=== PATIENT | female | born 1940 | race Caucasian/White ===

== ENCOUNTER 2019-09-01 17:43 | Inpatient (IN) | payer MEDICARE, OTHER ==
[~2019-09-01] VITALS: Ht 154.9 cm; Wt 69.6 kg
[~2019-09-01 17:43] MED LIST: ACIT10CA2 PO; AMLO10TA13 PO; ASPI-498 PO; CAR125T PO; CEPH500C PO; CHOL20007 PO; FEBU80TA PO; FURO1TAB33 PO; HYDR10TA26 PO; ISO60SRT PO; PERCOT PO; PRAV20TA3 PO; REPA0.5T5 PO; TOBRSUS35 EACHEYE
[2019-09-01 18:50] LABS: Basophils # (auto) 0 uL; Basophils % (auto) 0.7 % (0.0-2.0); Eosinophils # (auto) 0.1 uL; Eosinophils % (auto) 1.1 % (0.0-7.0); Hematocrit 31.5 % (36.0-46.0); Hemoglobin 10.5 g/dL (12.2-16.2); Lymphocytes # (auto) 1.1 uL; Lymphocytes % (auto) 23.6 % (10.0-50.0); Mean Corpuscular Hemoglobin 30.1 pg (28.0-32.0); Mean Corpuscular Hgb Conc. 33.5 g/dL (32.0-36.0); Mean Corpuscular Volume 89.8 fL (80.0-100.0); Monocytes # (auto) 0.6 uL; Monocytes % (auto) 13.3 % (0.0-12.0); Neutrophils # (auto) 2.9 uL; Neutrophils % (auto) 61.3 % (37.0-80.0); Platelet Count (auto) 115 10^3/uL (140-450); Red Cell Distribution Width 15.1 % (11.8-14.3); White Blood Cell 4.7 10^3/uL (4.4-10.8)
[2019-09-01 19:04] LABS: INR 1.04 (0.9-1.15); Partial Thromboplastin Time 27.9 sec (23.64-32.05)
[2019-09-01 19:08] LABS: Albumin 3.5 g/dL (3.4-5.0); Calcium 8.5 mg/dL (8.5-10.1)
[2019-09-01 19:14] LABS: BUN/Creatinine Ratio 6.2; Bilirubin, Total 0.5 mg/dL (0.2-1.0); Total Protein 7.8 g/dL (6.4-8.2)
[2019-09-01] MEDS ORDERED: ACETAMINOPHEN 325 MG TAB PO PRN (20:30)
[2019-09-01] MEDS ORDERED: HYDROcodone-ACET 5/325MG TAB PO PRN (20:30)
[2019-09-01] MEDS ORDERED: OXYCODONE W/ ACETAMINOPHEN 5/325MG TABLET PO PRN (20:30)
[2019-09-01] MEDS ORDERED: MORPHINE SULF INJ 2 MG/ML SYRINGE 1ML IV PRN (20:30)
[2019-09-01] MEDS ORDERED: NITROGLYCERIN 0.4 MG SL TAB SL PRN (20:30)
[2019-09-01] MEDS ORDERED: MORPHINE SULFATE 4 MG/ML SYR/VIAL IV PRN (20:30)
[2019-09-01] MEDS ORDERED: DOCUSATE SOD 100 MG CAP PO PRN (20:30)
[2019-09-01] MEDS ORDERED: DEXTROSE (50%) 50ML SYRG IV PRN (20:30)
[2019-09-01 20:31] LABS: Urine Bacteria NONE SEEN /hpf (None Seen); Urine Blood TRACE /uL (Negative); Urine Specific Gravity 1.012 (1.001-1.035); Urine WBC 19 /hpf (0 - 5)
[2019-09-01] MEDS ORDERED: POTASSIUM CHL 20MEQ/100ML 100 ML IV ONE (21:00)
[2019-09-01] MEDS: hydrALAZINE HCL 10 MG TAB PO SCH (23:03)
[2019-09-01] MEDS: CARVEDILOL 3.125 MG TAB PO SCH (23:04)
[2019-09-01] MEDS: ACCU-CHEK COMFORT CURVE STRIP VI SCH ×2 (23:04→23:26)
[2019-09-01] MEDS: PRAVASTATIN SODIUM 20 MG TAB PO SCH (23:04)
[2019-09-01] MEDS: InsuLIN REG 1unit/0.01ml Soln (100units/ml) SC SCH (23:25)
[2019-09-01 23:43] VITALS: BP 155/67
[2019-09-02] VITALS (8 sets, daily range): BP systolic 128–155; BP diastolic 52–74
[2019-09-02] MEDS: InsuLIN REG 1unit/0.01ml Soln (100units/ml) SC SCH ×5 (04:00→20:00)
[2019-09-02] MEDS: hydrALAZINE HCL 10 MG TAB PO SCH ×2 (05:23→05:25)
[2019-09-02 06:09] LABS: Basophils # (auto) 0 uL; Basophils % (auto) 0.8 % (0.0-2.0); Eosinophils # (auto) 0.1 uL; Eosinophils % (auto) 1.6 % (0.0-7.0); Hemoglobin 10.7 g/dL (12.2-16.2); Lymphocytes # (auto) 1.2 uL; Mean Corpuscular Hemoglobin 30.4 pg (28.0-32.0); Mean Corpuscular Hgb Conc. 34.5 g/dL (32.0-36.0); Mean Corpuscular Volume 88.2 fL (80.0-100.0); Monocytes # (auto) 0.6 uL; Monocytes % (auto) 12.8 % (0.0-12.0); Neutrophils # (auto) 2.7 uL; Neutrophils % (auto) 58.8 % (37.0-80.0); Nucleated Red Blood Cells % 0.1 %; Platelet Count (auto) 114 10^3/uL (140-450); Red Blood Cells 3.51 10^6/uL (4.0-5.20); Red Cell Distribution Width 14.9 % (11.8-14.3); White Blood Cell 4.6 10^3/uL (4.4-10.8)
[2019-09-02 06:20] LABS: Potassium 3.6 mmol/L (3.5-5.1)
[2019-09-02 06:25] LABS: BUN/Creatinine Ratio 6.6; Calcium 8.4 mg/dL (8.5-10.1)
[2019-09-02] MEDS: ACCU-CHEK COMFORT CURVE STRIP VI SCH ×4 (08:00→20:00)
[2019-09-02] MEDS: REPAGLINIDE 0.5 MG TAB PO SCH ×3 (08:54→19:04)
[2019-09-02] MEDS: CARVEDILOL 3.125 MG TAB PO SCH (10:00)
[2019-09-02] MEDS: FUROSEMIDE 20 MG TAB PO SCH (10:55)
[2019-09-02] MEDS: ISOSORBIDE MONONITRATE ER 60 MG TAB PO SCH (10:56)
[2019-09-02] MEDS: CHOLECALCIFEROL (VITD3) 1,000IU=25mCg TAB PO SCH (10:57)
[2019-09-02] MEDS: ASPirin-EC 81 mg tab PO SCH (10:57)
[2019-09-02] MEDS: amLODIPine BESYLATE 5 MG TAB PO SCH (10:58)
[2019-09-02] MEDS ORDERED: cefTRIAXone 1GM/50ML D5W 50 ML IV ONE (13:00)
[2019-09-02] MEDS: hydrALAZINE HCL 25 MG TAB PO SCH ×2 (14:58→22:36)
[2019-09-02] MEDS: PRAVASTATIN SODIUM 20 MG TAB PO SCH (22:42)
[2019-09-03] MEDS: InsuLIN REG 1unit/0.01ml Soln (100units/ml) SC SCH ×4 (04:00→12:00)
[2019-09-03] MEDS: ACCU-CHEK COMFORT CURVE STRIP VI SCH ×4 (05:02→12:00)
[2019-09-03 05:11] VITALS: BP 150/68
[2019-09-03] MEDS: hydrALAZINE HCL 25 MG TAB PO SCH (06:25)
[2019-09-03] MEDS: REPAGLINIDE 0.5 MG TAB PO SCH ×2 (08:38→12:00)
[2019-09-03] MEDS: cefTRIAXone 1GM/50ML D5W 50 ML IV SCH ×2 (09:00→09:20)
[2019-09-03] MEDS: ASPirin-EC 81 mg tab PO SCH (09:23)
[2019-09-03] MEDS: ISOSORBIDE MONONITRATE ER 60 MG TAB PO SCH (09:25)
[2019-09-03] MEDS: CHOLECALCIFEROL (VITD3) 1,000IU=25mCg TAB PO SCH (09:25)
[2019-09-03] MEDS: amLODIPine BESYLATE 5 MG TAB PO SCH (09:26)
[2019-09-03] MEDS: FUROSEMIDE 20 MG TAB PO SCH (09:32)
[2019-09-03 12:42] VITALS: BP 143/53
[2019-09-04] MEDS ORDERED: SODIUM CHL 0.9% 1000 ML BAG XX ONE (07:00)
[2019-09-04] MEDS ORDERED: EPOETIN ALFA 4,000 UNIT/ML VL SC ONE (21:00)
== END 2019-09-03 13:45 | disposition home or self-care (01) | DRG 291 ==
LOC: EDBD 17:43 → ER 17:50 → TELE 17:51 → TELE-EAST 22:29
PROVIDERS: ADMIT Hospitalist; ATTEND Hospitalist
DX: I13.2 Hypertensive heart and chronic kidney disease with heart failure and with stage 5 chronic kidney disease, or end stage renal disease (principal); I50.33 Acute on chronic diastolic (congestive) heart failure; N18.6 End stage renal disease; N17.9 Acute kidney failure, unspecified; N39.0 Urinary tract infection, site not specified; R00.1 Bradycardia, unspecified; E78.5 Hyperlipidemia, unspecified; I44.7 Left bundle-branch block, unspecified; E87.6 Hypokalemia; E78.00 Pure hypercholesterolemia, unspecified; E11.22 Type 2 diabetes mellitus with diabetic chronic kidney disease; D63.1 Anemia in chronic kidney disease; M10.9 Gout, unspecified; Z82.49 Family history of ischemic heart disease and other diseases of the circulatory system; Z99.2 Dependence on renal dialysis; Z83.3 Family history of diabetes mellitus
CPT/HCPCS: 36415; 71045; 76775; 80048; 80053; 80061; 81001; 82962; 83036; 83880; 84484; 85025; 85610; 85730; 93306; G0378; J0696; J3480

== ENCOUNTER 2020-07-08 12:03 | Inpatient (IN) | payer MEDICARE, OTHER ==
[~2020-07-08] VITALS: Ht 165.1 cm; Wt 70.3 kg
[2020-07-08] MEDS ORDERED: methylPREDNISolone SOD SUCC 125 MG/2 ML VL IV ONE (12:15)
[2020-07-08 13:11] LABS: Hematocrit 36.8 % (36.0-46.0); Hemoglobin 11.9 g/dL (12.2-16.2); Mean Corpuscular Hemoglobin 31.4 pg (28.0-32.0); Mean Corpuscular Hgb Conc. 32.5 g/dL (32.0-36.0); Mean Corpuscular Volume 96.7 fL (80.0-100.0); Platelet Count (auto) 172 10^3/uL (140-450); Red Cell Distribution Width 19.3 % (11.8-14.3)
[2020-07-08 13:18] LABS: Basophils % (manual) 0 (0.0-2.0); Blast Cells 0; Eosinophils % (manual) 0 (0-7); Promyelocytes % 0; Reactive Lymphocytes 0
[2020-07-08 13:29] LABS: Albumin 2.3 g/dL (3.4-5.0); Calcium 9.2 mg/dL (8.5-10.1); Potassium 4.1 mmol/L (3.5-5.1)
[2020-07-08 13:32] LABS: Lactic Acid w/Reflex 5.3 mmol/L (0.4-2.0)
[2020-07-08 13:34] LABS: BUN/Creatinine Ratio 7.4
[2020-07-08 14:30] LABS: Band Neutrophils % (manual) 25; Lymphocytes % (manual) 1 (10.0-50.0); Metamyelocytes % 1; Monocytes % (manual) 10 (0-12); Myelocytes % 2
[2020-07-08] MEDS ORDERED: MORPHINE SULFATE 4 MG/ML SYR/VIAL IV ONE (17:00)
[2020-07-08] MEDS ORDERED: FUROSEMIDE 40 MG/4 ML VIAL IV ONE (17:00)
[2020-07-08] MEDS ORDERED: ONDANSETRON HCL 4 MG/2 ML VIAL IV ONE (17:00)
[2020-07-08] MEDS ORDERED: ETOMIDATE (2MG/ML) 20ML VIAL IV ONE (18:11)
[2020-07-08] MEDS ORDERED: SUCCINYLCHOLINE CHLORIDE 20 MG/ML 10ML VIAL IV ONE (18:11)
[2020-07-08] MEDS ORDERED: MIDAZOLAM DRIP 50 mg/50mL 50 ML IV ONE (18:12)
--- NOTE | 2020-07-08 18:20 | NUR ---
PT INTUBATED BY MD Aydee INGRAM, POSITIVE COLOR CHANGE ON CO2 DETECTOR. BILATERAL CHEST RISE OBSERVED. SXD VIA ETT FOR SMALL THIN DARK BROWN SPUTUM SAMPLE OBTAINED AND SENT TO LAB. WILL CONTINUE TO MONITOR.
[2020-07-08] MEDS ORDERED: NITROGLYCERIN 0.4 MG SL TAB SL PRN (19:00)
[2020-07-08] MEDS ORDERED: NOREPINEPHRINE 8 MG/250ML KIT 250 ML IV SCH (19:00)
[2020-07-08] MEDS ORDERED: VANCOMYCIN PER PHARMACY 0 MG IV SCH (19:00)
[2020-07-08] MEDS ORDERED: MORPHINE SULF INJ 2 MG/ML SYRINGE 1ML IV PRN (19:00)
[2020-07-08] MEDS ORDERED: fentaNYL Drip 2500mCg/250mlNS 250 ML IV SCH (19:00)
[2020-07-08] MEDS ORDERED: SODIUM BICARBONATE 50ML VIAL 50 ML in SOD CHL 0.45% 1,000 ML IV ONE (19:15)
[2020-07-08] MEDS ORDERED: VANCOMYCIN 1GM/250ML 250 ML IV ONE (20:00)
[2020-07-08 21:30] VITALS: BP 62/20
[2020-07-08] MEDS ORDERED: SODIUM BICARBONATE 50ML VIAL 100 ML in SOD CHL 0.45% 1,000 ML IV SCH (21:30)
[2020-07-08] MEDS ORDERED: SODIUM BICARBONATE 8.4 % INJ 50ML VIAL IV ONE (21:30)
[2020-07-08] MEDS ORDERED: PIPERACILLIN-TAZOB 2.25GM 50 ML IV SCH (22:00)
[2020-07-08] MEDS ORDERED: ALBUMIN 5% 250 ML IV ONE (22:00)
[2020-07-08] MEDS ORDERED: PHENYLEPHRINE IV 250 ML IV ONE (23:44)
[2020-07-09] MEDS ORDERED: SODIUM BICARBONATE 8.4% INJ 50ML SYRINGE ONE (01:02)
[2020-07-09] MEDS ORDERED: NOREPINEPHRINE 8 MG/250ML KIT 250 ML IV SCH (01:30)
[2020-07-09] MEDS ORDERED: PHENYLEPHRINE IV 250 ML IV ONE ×2 (02:46→04:45)
[2020-07-09 03:08] VITALS: BP 72/32
[2020-07-09 05:09] VITALS: BP 60/28
[2020-07-09] MEDS ORDERED: VASOPRESSIN 50 UNITS in D5W 5% 247.5 ML IV SCH ×4 (05:15)
[2020-07-09] MEDS ORDERED: VASOPRESSIN 20 UNIT/ML ONE (05:18)
[2020-07-09] MEDS ORDERED: EPINEPHrine HCL 1 MG/10 ML SYRG IV ONE (05:55)
[2020-07-09] MEDS ORDERED: SODIUM BICARBONATE 8.4% INJ 50ML SYRINGE IV ONE (05:55)
[2020-07-09] MEDS ORDERED: ENOXAPARIN SOD 30 MG/0.3 ML SYRINGE SC SCH (10:00)
[2020-07-09] MEDS ORDERED: DexAMETHasone SOD PHOS 10MG/1ML VIAL INJ IV SCH (10:00)
== END 2020-07-09 05:56 | DRG 871 ==
LOC: EDBD 12:03 → ER 12:03 → TELE 12:04
PROVIDERS: ADMIT Nurse Practitioner Acute Care; ATTEND Nurse Practitioner Acute Care
PROC: 0BH17EZ Insertion of Endotracheal Airway into Trachea, Via Natural or Artificial Opening (ICD-10-PCS; 2020-07-08)
PROC: 5A12012 Performance of Cardiac Output, Single, Manual (ICD-10-PCS; principal; 2020-07-09)
DX: A41.9 Sepsis, unspecified organism (principal); I50.33 Acute on chronic diastolic (congestive) heart failure; J96.01 Acute respiratory failure with hypoxia; G93.41 Metabolic encephalopathy; N18.6 End stage renal disease; R65.21 Severe sepsis with septic shock; N17.0 Acute kidney failure with tubular necrosis; K56.609 Unspecified intestinal obstruction, unspecified as to partial versus complete obstruction; I13.2 Hypertensive heart and chronic kidney disease with heart failure and with stage 5 chronic kidney disease, or end stage renal disease; K92.2 Gastrointestinal hemorrhage, unspecified; K41.30 Unilateral femoral hernia, with obstruction, without gangrene, not specified as recurrent; I46.9 Cardiac arrest, cause unspecified; D63.8 Anemia in other chronic diseases classified elsewhere; E11.22 Type 2 diabetes mellitus with diabetic chronic kidney disease; E78.5 Hyperlipidemia, unspecified; Z79.899 Other long term (current) drug therapy; Z83.3 Family history of diabetes mellitus; Z99.2 Dependence on renal dialysis; Z82.49 Family history of ischemic heart disease and other diseases of the circulatory system; Z20.828 Contact with and (suspected) exposure to other viral communicable diseases; C80.1 Malignant (primary) neoplasm, unspecified
CPT/HCPCS: 31500; 36415; 36600; 71045; 74176; 80053; 82728; 82805; 83605; 83880; 84484; 85007; 85027; 85379; 86141; 87040; 87070; 87077; 87186; 87205; 87426; 94002; G0378; J0330; J2250; J2543; J7060